=== PATIENT | female | born 1980 ===

== ENCOUNTER 2024-04-12 05:42 | Day surgery (SDC) | payer OTHER ==
[2024-04-05 10:44] LABS: URINE APPEARANCE Clear; URINE BILIRRUBIN Negative (NEGATIVE); URINE BLOOD Large; URINE COLOR Yellow; URINE GLUCOSE Negative (NEGATIVE); URINE KETONE Negative (NEGATIVE); URINE LEUKOCYTE Moderate; URINE NITRATE Negative; URINE PROTEIN Negative (NEGATIVE); URINE UROBILINOGEN 0.2 E.U./dl
[2024-04-05 10:47] LABS: URINE EPITHELIAL CELLS 23.9 uL (0.0-38.8); URINE WBC 145.4 uL (0.0-23.2)
[2024-04-05 11:12] LABS: URINE RBC 0.9 uL (0.0-20.8)
[2024-04-05 11:14] LABS: HEMATOCRIT 39.1 % (36.0-45.00); HEMOGLOBIN 13.4 g/dL (12.0-15.00); MEAN CORPUSCULAR HEMOGLOBIN 33.6 pg (27.00-32.0); MEAN CORPUSCULAR HGB CONC 34.3 g/dl (32.0-36.0); PLATELET COUNT 184 K/uL (150-450)
[2024-04-05 11:30] LABS: INR 1.05; PARTIAL THROMBOPLASTIN TIME 27.9 SECONDS (22.0-34.0)
[2024-04-05 11:49] LABS: ALBUMIN 3.9 gm/dL (3.4-5.0); BILIRUBIN TOTAL 0.82 mg/dL (0.3-1.2); CREATININE SERUM 0.67 mg/dL (0.55-1.02); GFR 95.61; POTASSIUM 3.94 mEq/L (3.5-5.1); TOTAL PROTEIN 6.9 gm/dL (6.4-8.2)
[2024-04-12] MEDS ORDERED: CEFAZOLIN SODIUM 1,000 MG VIAL ONE (07:11)
[2024-04-12] MEDS ORDERED: EPINEPHRINE HCL/PF 1 MG/ML AMPUL ONE (07:11)
[2024-04-12] MEDS ORDERED: POVIDONE-IODINE 118 ML BOTT TOP ONE ×2 (07:15→09:30)
[2024-04-12] MEDS ORDERED: NEOMYCIN/POLYMYXIN B/HYDROCORT 20 DR/ML BOTTLE OT ONE ×2 (07:16→09:30)
[2024-04-12] MEDS ORDERED: POVIDONE-IODINE SCRUB 118 ML BOTT TOP ONE ×2 (07:16→09:30)
[2024-04-12] MEDS ORDERED: LIDOCAINE HCL 1%/EPINEPHRINE 20ML VIAL IJ ONE ×2 (07:17→09:15)
[2024-04-12] MEDS ORDERED: BACITRACIN 28.35 GM OINT.TUBE TOP ONE (09:30)
[2024-04-12] MEDS ORDERED: CEFAZOLIN SODIUM 1,000 MG VIAL IV ONE (09:45)
[2024-04-12] MEDS ORDERED: KETOROLAC TROMETHAMINE 60 MG VIAL IM PRN (13:15)
[2024-04-12] MEDS ORDERED: PROMETHAZINE HCL 25 MG/ML AMPUL IM PRN (13:15)
[2024-04-12] MEDS ORDERED: PROMETHAZINE HCL 25 MG/ML AMPUL ONE (15:19)
== END 2024-04-12 16:05 | disposition home or self-care (01) ==
LOC: CIR.AMB 05:42
PROVIDERS: ATTEND Otolaryngology Otology & Neurotology
DX: H71.01 Cholesteatoma of attic, right ear (principal)